=== PATIENT | male | born 1985 | race African-American/Black ===

== ENCOUNTER 2022-09-25 06:07 | Emergency (ER) | payer SELFPAY ==
--- NOTE | ~2022-09-25 | XR_ITS ---
EXAMINATION: XR SHOULDER, LEFT CLINICAL INFORMATION: Shoulder pain COMPARISON: None available. TECHNIQUE: 2 views frontal and scapular Y view FINDINGS: The bones and soft tissues are normal. No fracture. Glenohumeral and acromioclavicular alignment is anatomic with normal joint space. No abnormal soft tissue calcifications. XR/XR shoulder LT min 2V IMPRESSION: No fracture or dislocation.
[2022-09-25 06:19] VITALS: BP 113/86; PULSE 70; RESP 16; TEMP 36.7; O2SAT 98; BMI 33.5
--- NOTE | 2022-09-25 07:42 | ED.EXTPRO ---
HPI - Extremity Problem General Chief complaint: Extremity Injury, Upper Stated complaint: L Shoulder pain/?Dislocated Time Seen by Provider: 09/25/22 07:00 Source: patient and family Mode of arrival: ambulatory Limitations: no limitations History of Present Illness HPI Narrative: Patient is a 37-year-old male presenting to the emergency department with left shoulder pain, questioning dislocation. States that he was lifting a box yesterday, heard a pop, did not have instantaneous pain. States that he developed a gradual worsening of pain throughout the day yesterday. Reports that he felt his shoulder was dislocated so he watched You tube videos and attempted to reduce his shoulder himself. Denies history of prior dislocations. Patient's significant other reports that she heard a ?pop? while patient was attempting to reduce his shoulder himself yesterday. Used ibuprofen with. Denies any falls or other trauma. Denies any numbness or tingling. MD Complaint: extremity pain Onset (ago): hour(s) Pain Consistency: constant Location: left and upper extremity Quality: aching Radiation: none Relieving factors: rest Exacerbating factors: range of motion Associated symptoms: denies other symptoms Context: other (Occurred while lifting a box) Related Data Allergies Allergy/AdvReac Type Severity Reaction Status Date / Time No Known Allergies Allergy Verified 09/25/22 06:27 Review of Systems Review of Systems: As per HPI. Yes all other systems are reviewed and are negative Constitutional: Constitutional: Reports as per HPI [facility] Social History Social History Advance Directives: No Physical Exam Vital Signs: Vital Signs: Last Vital Signs Temp 98.1 F 09/25/22 06:19 Pulse 70 09/25/22 06:19 Resp 16 09/25/22 06:19 BP 113/86 09/25/22 06:19 Pulse Ox 98 09/25/22 06:19 O2 Del Method Room Air 09/25/22 06:19 BMI result Body Mass Index 33.5 Vital signs have been reviewed and appear to be correct. Blood pressure normal. Heart rate normal. Respiratory rate normal. Temperature normal. Oxygen saturation normal. Const: General: cooperative, healthy appearing and no acute distress Orientation/consciousness: oriented to person, oriented to place, oriented to time and patient oriented x3 Limitations: no limitations HEENT: Head: Yes normocephalic and Yes atraumatic Ears: external ears normal General nose exam: Normal external nose present Face and sinus: Yes face symmetric Mouth: oropharynx normal and moist mucous membranes Throat: Yes uvula midline Eyes: Pupils: Equal, round and reactive pupils present Neck: Neck: Yes normal visual inspection and Yes supple Resp: Effort & Inspection: normal respiratory effort and able to speak in complete sentences Auscultation: clear to auscultation bilaterally Cardio: Rate: regular rate Rhythm: regular rhythm Heart sounds: S1 normal heart sound present and S2 normal heart sound present GI: Palpation (GI): Soft to palpation and nontender Auscultation: normoactive bowel sounds : General: Yes no CVA tenderness Back/Spine/Pelvis: Back: no CVA tenderness Skin: General skin exam: elasticity normal and turgor normal Neuro: General: oriented to person, oriented to place, oriented to time, patient oriented x3, moves all extremities, no focal motor deficits, CN's II-XI intact bilaterally and deep tendon reflexes 2+ bilaterally Cranial nerves: Yes Equal, round and reactive pupils present Cognition (Neuro): normal cognition Extrem: General: Yes capillary refill normal, Yes normal exam except as noted, Yes no pedal edema and Yes no calf tenderness Right upper extremity: shoulder/upper arm Details: normal to inspection and abnormal ROM Details: pain with active ROM Details: in ABduction, in flexion and external rotation-, pain with passive ROM Details: with ABduction, with flexion and external rotation- and with range as follows (decreased ROM with forward flexion, abduction, external rotation) and Extremity exam: right hand Details: normal to inspection, normal capillary refill, neuromotor exam normal, neurosensory exam normal and vascular exam Details: radial pulse present Psych: Mental Status: mental status grossly normal Affect: normal affect Thought process: Normal thought process present Medical Decision Making Medical Decision Making MDM Narrative: Patient is a 37-year-old male presenting to the emergency department with left shoulder pain, questioning dislocation. On exam patient is awake, A+Ox3, VS WNL, afebrile, normal neurological exam without focal deficits, decreased ROM and pain with passive ROM to left shoulder, decreased ROM with forward flexion, abduction, and external rotation, neurovascularly intact distal. Given reported symptoms and physical exam findings, initial differential includes impingement syndrome, rotator cuff strain or sprain, possible dislocation reduced by patient. X-ray notable for no fracture/dislocation, normal alignment and joint spaces. My interpretation is in agreement with the radiologist's interpretation. Feel dislocation is less likely, more likely a rotator cuff strain. Advised patient to alternate ibuprofen/tylenol, perform gentle ROM/stretching exercises, and will refer to ortho. Discussed with patient that in the future he should avoid attempting to reduce shoulder himself as he can cause further injury. Advised patient to follow up with PCP as well. Patient and SO verbalized understanding of and agreement with plan. Differential Diagnosis Differential Diagnoses: The differential diagnosis associated with the presentation includes As per MDM. Independent Interpretation I performed an independent interpretation of an: Plain X-Ray Interpretation: No fracture or dislocation of L shoulder Radiology Impression Radiologist Impression: XR/XR shoulder LT min 2V IMPRESSION: No fracture or dislocation. Independent Historian Clinical information obtained from an independent historian. History obtained from or confirmed by: Spouse External Record Review External record reviewed: Inpatient record, Office record and Outpatient record Discharge Plan Discharge Clinical Impression: Rotator cuff injury Qualifiers: Encounter type: initial encounter Laterality: left Qualified Code(s): S46.002A - Unspecified injury of muscle(s) and tendon(s) of the rotator cuff of left shoulder, initial encounter Patient Disposition: Home, Self-Care Instructions: Rotator Cuff Injury (ED), Rotator Cuff Injury Exercises (DC), R.I.C.E. Treatment (ED) Additional Instructions: You have been evaluated in the emergency department today for left shoulder pain. Your evaluation did not find evidence of medical conditions requiring emergent intervention at this time. Please rest, ice your shoulder for 10-15 minutes at a time several times daily, and resume normal activities as tolerated. We recommend you take 600mg ibuprofen every 6 hours or 650mg Tylenol every 6 hours as needed for pain. If Needed you can alternate these medications as they take 1 medication every 3 hours. For instance at noon take ibuprofen, then at 3:00 p.m. take Tylenol, then at 6:00 p.m. take ibuprofen. You are being referred to orthopedics, please follow up with them for further evaluation of your shoulder pain. Please schedule an appointment for follow-up with your primary care provider this week. Return to the emergency department if you experience worsening pain, numbness, tingling, change of color in your arm/hand, or any other concerning symptoms. Referrals: [facility] [place]Provider Group] Stand Alone Forms: Work/School Release
== END 2022-09-25 08:22 | disposition home or self-care (01) ==
PROVIDERS: Emergency Provider Emergency Medicine
DX: S46.002A Unspecified injury of muscle(s) and tendon(s) of the rotator cuff of left shoulder, initial encounter (principal); M25.512 Pain in left shoulder; X50.0XXA Overexertion from strenuous movement or load, initial encounter; Y93.9 Activity, unspecified; Y92.9 Unspecified place or not applicable; Y99.9 Unspecified external cause status
CPT/HCPCS: 73030; 99283; 99284

== ENCOUNTER → 2024-09-30 10:58 | Outpatient (BNVA) | payer OTHER, SELFPAY | PROVIDERS: Visit Provider Physician Assistant Medical | DX: S51.812A Laceration without foreign body of left forearm, initial encounter (principal); W26.9XXA Contact with unspecified sharp object(s), initial encounter; Z53.9 Procedure and treatment not carried out, unspecified reason | CPT/HCPCS: 99202 ==

== ENCOUNTER → 2024-10-06 11:31 | Outpatient (BNVA) | payer OTHER, SELFPAY | PROVIDERS: Visit Provider Physician Assistant Medical | DX: S51.812A Laceration without foreign body of left forearm, initial encounter (principal); W26.9XXA Contact with unspecified sharp object(s), initial encounter; Z91.199 Patient's noncompliance with other medical treatment and regimen due to unspecified reason | CPT/HCPCS: 99213 ==

== ENCOUNTER → 2024-10-14 12:57 | Outpatient (BNVA) | payer OTHER, SELFPAY | PROVIDERS: Visit Provider Physician Assistant Medical | DX: S51.812A Laceration without foreign body of left forearm, initial encounter (principal); W26.9XXA Contact with unspecified sharp object(s), initial encounter; Z23 Encounter for immunization | CPT/HCPCS: 90715; 99213 ==

== ENCOUNTER 2025-01-27 02:52 | Inpatient (IN) | payer MEDICAID, SELFPAY ==
[2025-01-27] VITALS (11 sets, daily range): BP systolic 112–160; BP diastolic 57–81; PULSE 76–102; RESP 16–21; TEMP 36–38.7; O2SAT 94–96; BMI 33.5
--- NOTE | ~2025-01-27 | XR_ITS ---
CLINICAL HISTORY: chest pain, SOB 2 view chest x-ray Comparison: None provided Findings: Normal size heart. Cavitary consolidation in the left mid lung, also seen on the lateral view. No other consolidations. No pleural effusion or pneumothorax. Osseous structures are unremarkable. IMPRESSION: Cavitary consolidation in the left mid lung. Differentials are tuberculosis, pulmonary abscess, fungal infection, necrotizing pneumonia, malignancy, inflammatory/autoimmune process. This document has been electronically signed by: Mookie Snow MD on 01/27/2025 04:19:16
--- NOTE | ~2025-01-27 | CT_ITS ---
EXAMINATION: CT ANGIOGRAM CHEST CLINICAL INFORMATION: Hemoptysis. COMPARISON: None available. TECHNIQUE: Multiple axial images were obtained through the chest after the administration of 75 mL of Omnipaque 350 intravenous contrast. Extensive vascular post-processing including two-dimensional and three-dimensional reformatted images were created and reviewed on an independent workstation. SmartPrep technique. This CT examination was performed using dose optimization techniques as appropriate, variously including the following: *Automated exposure control *Adjustment of mA and/or kV according to patient size (this includes techniques or standardized protocols for targeted exams where dose is matched to indication/reason for exam; i.e. extremities or head) *Use of iterative reconstruction technique DLP: 353 mGy-cm FINDINGS: Main pulmonary artery, main left and right pulmonary artery branches and subsegmental pulmonary artery branches are patent without gross intraluminal filling defects. No aneurysm or dissection, thoracic aorta. Left vertebral artery origin directly from the aortic arch between the left CCA and left subclavian artery. There is a 38 x 33 x 35 mm irregular thick wall cavitary lesion, left upper lung lobe likely anterior segment with associated the peripheral pulmonary groundglass. Multifocal tree-in-bud pattern abnormalities in the right lung. Secretions within the lumen of the small bronchi to the right lower lung lobe. No pleural effusion. No pneumothorax. No hemothorax. No calcified pleural plaques. No gross mediastinal or perihilar lymphadenopathy. No pericardial effusion. Heart is not enlarged. Thyroid gland demonstrates normal morphology without dominant nodules. Gallbladder is contracted. Gynecomastia, bilaterally. Spondylosis C6-7. No acute fracture or listhesis in the thoracic spine. No acute rib fractures. Clavicles and scapula are intact. Sternum is intact. CT/CT angio chest PE protocol IMPRESSION: No acute pulmonary artery emboli. Concerning fungal infection versus mycobacterium with the dominant irregular shaped cavitary lesion, left upper lung lobe lung abscess cannot be excluded. Fleischner guidelines were followed. Electronically signed by: Juan Antonio Ford MD 01/27/2025 07:25 AM EST
--- NOTE | 2025-01-27 03:18 | ECG_ITS ---
Test Reason : cp Blood Pressure : */* mmHG Vent. Rate : 93 BPM Atrial Rate : 93 BPM P-R Int : 170 ms QRS Dur : 80 ms QT Int : 330 ms P-R-T Axes : 65 30 56 degrees QTcB Int : 410 ms Normal sinus rhythm ST elevation, consider early repolarization, pericarditis, or injury Nonspecific ST and T wave abnormality Abnormal ECG No previous ECGs available Referred By: Generic ED Physician Electronically Signed By: DAVID QUEVEDO MD
[2025-01-27 04:39] LABS: Hematocrit 39.0 % (42.0-52.0); Hemoglobin 13.5 g/dl (14.0-18.0); Imm Gran Abs Auto 0.44 X10*3/uL (0.00-0.03); Imm Gran Pct Auto 2.3 % (0.0-0.4); Lymphocytes Absolute Auto 3.0 X10*3/uL (1.2-4.9); Mean Corpuscular HGB Conc 34.6 g/dl (31.0-36.0); Mean Corpuscular Hemoglobin 28.9 pg (27.0-33.0); Mean Corpuscular Volume 83.5 fL (80.0-98.0); NRBC Abs Auto 0.000 X10*3/uL (0.0-0.012); NRBC Pct Auto 0.0 /100WBC (0.0-0.2); Platelet Count 285 X10*3/uL (160-400); Red Blood Count 4.67 X10*6/uL (4.60-5.80); SCAN SMEAR FLAG 1; White Blood Count 18.8 X10*3/uL (4.8-10.8)
[2025-01-27 04:46] LABS: MANUAL DIFF FLAG SCAN
--- NOTE | 2025-01-27 04:50 | ED.CHESTPAIN ---
HPI - Chest Pain General Chief Complaint: Chest Pain Stated Complaint: CP Time Seen by Provider: 01/27/25 04:49 Source: patient and family Mode of arrival: ambulatory Limitations: language barrier History of Present Illness ED Provider: Dr. Minerva Childers HPI narrative: 39-year-old male presents with approximately one week of left-sided chest pain located ?around the heart? that does not radiate. Pain increases with deep inspiration and with coughing. Associated symptoms include shortness of breath, nausea, decreased appetite, subjective fever within the last 24 hours, cough productive of blood-tinged sputum, sinus congestion, and occasional epistaxis when blowing his nose. He reports household members are also ill with upper-respiratory?type symptoms. He took ibuprofen ?days ago? without significant relief. Denies chronic medical problems, daily medications, and medication allergies. He was incarcerated many years ago (not recently), denies homelessness, and last left the country ?a couple years? ago. Related Data Previous Rx's ?Medication ?Instructions ?Recorded doxycycline monohydrate 100 mg 100 mg PO BID 7 days #14 caps 09/30/24 capsule ibuprofen 800 mg tablet 800 mg PO TID PRN pain #30 tabs 09/30/24 Allergies Allergy/AdvReac Type Severity Reaction Status Date / Time No Known Allergies Allergy Verified 01/27/25 03:15 Review of Systems Review of Systems: as per HPI, full review of systems performed and negative but for the above mentioned pertinent positives and negatives. [facility] Social History Social History Alcohol intake: never Advance Directives: No Advance Directives Information Provided: Yes Physical Exam Exam: Exam: GENERAL: Ill-Appearing, appears uncomfortable. SKIN: Normal skin color for ethnicity, warm, dry, no rashes noted. HEENT:? Normocephalic, atraumatic, no stridor, dry mucous membranes, dentition intact, EOMI. NECK: Soft, supple, full ROM, midline structures nontender, no step-offs, no deformities, no lymphadenopathy. CHEST: Heart regular tachycardia, no murmurs, symmetric chest rise and fall. PULMONARY: Clear to auscultation bilaterally, diminished at the bases, slight tachypnea, no wheezes/rhales/rhonchi. ABDOMINAL: Soft, nondistended, nontender, positive bowel sounds in all quadrants. : Deferred. MUSCULOSKELETAL: Normal tone, full range of motion, no deformities, no peripheral edema. NEURO: Alert and oriented x3, CN II through XII intact, equal strength and sensation bilateral upper and lower extremities, no focal neurologic deficits.? PSYCHIATRIC: Flat affect, fluid speech, good eye contact and appropriate demeanor. Vital Signs: Vital Signs: Last Vital Signs Temp 101.6 F H 01/27/25 05:44 Pulse 102 H 01/27/25 03:14 Resp 16 01/27/25 03:14 BP 121/68 01/27/25 03:14 Pulse Ox 96 01/27/25 03:14 O2 Del Method Room Air 01/27/25 03:14 BMI result Body Mass Index 33.5 Medications Administered Discontinued Medications Generic Name Dose Route Start Last Admin Trade Name Freq PRN Reason Stop Dose Admin Lactated Ringer's 1,000 mls @ 999 mls/hr 01/27/25 05:15 01/27/25 05:48 Lr IV 01/27/25 06:15 999 mls/hr .Q1H1M ONE Administration Acetaminophen 1,000 mg in 100 mls @ 400 mls/hr 01/27/25 05:15 01/27/25 07:20 Ofirmev IV 01/27/25 05:29 Infused ONCE ONE Infusion Doxycycline Hyclate 100 mg/ 250 mls @ 166.67 mls/hr 01/27/25 05:15 01/27/25 05:47 Sodium Chloride IV 01/27/25 06:44 166.67 mls/hr ONCE ONE Administration Cefepime HCl 2 gm in 50 mls @ 100 mls/hr 01/27/25 05:15 01/27/25 05:47 Maxipime IV 01/27/25 05:44 100 mls/hr ONCE ONE Administration Iohexol 75 ml 01/27/25 07:03 01/27/25 07:04 Iohexol 350 Mg/Ml 100 Ml Infus..Btl IV 01/27/25 07:04 75 ml ONCE ONE Administration Ondansetron HCl 4 mg 01/27/25 05:15 01/27/25 05:47 Ondansetron Hcl 4 Mg/2 Ml Vial IVPUSH 01/27/25 05:16 4 mg ONCE ONE Administration Medical Decision Making Medical Decision Making MDM Narrative: 39-year-old male with left-sided pleuritic chest pain, cough with hemoptysis, subjective fever, and imaging showing left mid-lung pneumonia with morphology concerning for tuberculosis. Differential diagnosis includes, but is not limited to, upper respiratory infection, pneumonia, COPD exacerbation, asthma exacerbation, CHF, pneumothorax, pleural effusion, pulmonary embolism, ACS. Broad-based work-up will be initiated to evaluate for etiology of patient's symptoms. Problem #1: Left-sided pneumonia Assessment: Imaging confirms pneumonia correlating with pain location; patient febrile and tachycardic. Plan: Begin empiric intravenous antibiotics. Monitor vital signs and oxygen saturation; supplemental O2 as needed (15 L while on monitor). Antipyretics for fever and analgesia after core temperature obtained. Follow-up: Reassess after CT results; update management accordingly. Problem #2: Possible pulmonary tuberculosis Assessment: CXR lesion morphology concerning; patient risk factors include prior incarceration, no recent travel outside of the country. Patient is from [facility] originally. States he has not been there since 2022. Everyone in his home is also sick with cough and fever. No recent weight loss. Plan: CT chest ordered for further evaluation. Obtain QuantiFERON-TB Gold test. Place patient on airborne precautions (N95/mask for patient during transport) to prevent spread. Problem #3: Hemoptysis Assessment: Cough productive of blood-tinged sputum, likely secondary to pneumonia vs TB. Plan: Address underlying infection (see above). Admit to hospitalist for further care and evaluation of cavitary lesion in the left lung, fever and hemoptysis. Differential Diagnosis Differential Diagnoses: The differential diagnosis associated with the presentation includes (as above) Admission/Observation Consideration of admission/observation: Escalation of care including admission/observation considered Consult Healthcare Provider Management of the patient was discussed with: Hospitalist Lab Data [facility] Lab Attestation statement: I reviewed the patient's lab results. 01/27/25 04:32 01/27/25 04:32 Labs: Lab Results 01/27/25 01/27/25 Range/Units 04:32 05:28 WBC 18.8 H (4.8-10.8) X10*3/uL RBC 4.67 (4.60-5.80) X10*6/uL Hgb 13.5 L (14.0-18.0) g/dl Hct 39.0 L (42.0-52.0) % MCV 83.5 (80.0-98.0) fL MCH 28.9 (27.0-33.0) pg MCHC 34.6 (31.0-36.0) g/dl RDW 13.2 (11.0-16.0) % Plt Count 285 (160-400) X10*3/uL MPV 10.7 (9.4-12.4) fL Immature Gran % (Auto) 2.3 H (0.0-0.4) % Neut % (Auto) 67.3 (45-73) % Lymph % (Auto) 16.2 L (20-40) % [place] % (Auto) 13.7 H (2-11) % Eos % (Auto) 0.2 (0-4) % Baso % (Auto) 0.3 (0-2) % Lymph # (Auto) 3.0 (1.2-4.9) X10*3/uL [place] # (Auto) 2.6 H (0.1-1.2) X10*3/uL Eos # (Auto) 0.0 (0.0-0.4) X10*3/uL Baso # (Auto) 0.1 (0.0-0.2) X10*3/uL Abs Immat Gran (auto) 0.44 H (0.00-0.03) X10*3/uL Absolute Neuts (auto) 12.6 H (2.0-8.3) x10*3/uL Absolute Nucleated RBC 0.000 (0.0-0.012) X10*3/uL Nucleated RBC % (auto) 0.0 (0.0-0.2) /100WBC Smear Tech's Comments VERIFIED Sodium 134 L (135-145) mmol/L Potassium 3.7 (3.3-5.1) mmol/L Chloride 97 (96-108) mmol/L Carbon Dioxide 25 (22-29) mmol/L Anion Gap 16 (12-20) BUN 12 (9-16) mg/dL Creatinine 1.30 (0.5-1.4) mg/dL Estim Creat Clear Calc 96.7 Estimated GFR > 60 Random Glucose 111 (60-115) mg/dL Lactic Acid 1.0 (0.5-2.0) mmol/L Calcium 9.2 (8.4-10.2) mg/dL Total Bilirubin 0.8 (0.0-1.0) mg/dL Direct Bilirubin 0.3 (0.0-0.5) mg/dL AST 45 H (5-37) U/L ALT 41 H (0-40) U/L Alkaline Phosphatase 62 (39-117) U/L Troponin I High Sens < 2.7 (<3.5-35.0) ng/L Total Protein 8.3 H (6.5-8.0) g/dL Albumin 4.2 (3.5-5.0) g/dL Influenza Type A (PCR) NEGATIVE (Negative) Influenza Type B (PCR) NEGATIVE (Negative) RSV RNA Qual (PCR) NEGATIVE (Negative) SARS-CoV-2 RNA (RT-PCR) NEGATIVE (Negative) Independent Interpretation I performed an independent interpretation of an: EKG and Plain X-Ray Interpretation: Left middle lobe cavitary lesion concerning for potential tuberculosis versus abscess versus other cavitary lesion. We will obtain CT. Radiology Impression Discussion of test interpretation with radiology: I have reviewed the radiologist's reading. Radiologist Impression: FINDINGS: Main pulmonary artery, main left and right pulmonary artery branches and subsegmental pulmonary artery branches are patent without gross intraluminal filling defects. No aneurysm or dissection, thoracic aorta. Left vertebral artery origin directly from the aortic arch between the left CCA and left subclavian artery. There is a 38 x 33 x 35 mm irregular thick wall cavitary lesion, left upper lung lobe likely anterior segment with associated the peripheral pulmonary groundglass. Multifocal tree-in-bud pattern abnormalities in the right lung. Secretions within the lumen of the small bronchi to the right lower lung lobe. No pleural effusion. No pneumothorax. No hemothorax. No calcified pleural plaques. No gross mediastinal or perihilar lymphadenopathy. No pericardial effusion. Heart is not enlarged. Thyroid gland demonstrates normal morphology without dominant nodules. Gallbladder is contracted. Gynecomastia, bilaterally. Spondylosis C6-7. No acute fracture or listhesis in the thoracic spine. No acute rib fractures. Clavicles and scapula are intact. Sternum is intact. IMPRESSION: No acute pulmonary artery emboli. Concerning fungal infection versus mycobacterium with the dominant irregular shaped cavitary lesion, left upper lung lobe lung abscess cannot be excluded. Independent Historian Clinical information obtained from an independent historian. History obtained from or confirmed by: Spouse Prescription Management I considered prescription management with: Antibiotic Social Determinants Patient?s care significantly limited by Social Determinants of Health including: Other Social Determinant of Health Discharge Plan Discharge Clinical Impression: Pulmonary cavitary lesion, Cough with hemoptysis Patient Disposition: Admitted As Inpatient Print Language: Amharic
[2025-01-27 04:59] LABS: Anion Gap 16 (12-20); Blood Urea Nitrogen 12 mg/dL (9-16); Calcium 9.2 mg/dL (8.4-10.2); Carbon Dioxide 25 mmol/L (22-29); Chloride 97 mmol/L (96-108); Creatinine Clr Calc Pharmacy 96.7; Estimated Glomerular Filt Rate > 60; Potassium 3.7 mmol/L (3.3-5.1); Sodium 134 mmol/L (135-145)
[2025-01-27 05:07] LABS: Troponin-I High Sensitivity < 2.7 ng/L (<3.5-35.0)
[2025-01-27 05:18] LABS: Resp Syncy Virus RNA Qual PCR NEGATIVE (Negative); SARS COV2 PCR INHOUSE NEGATIVE (Negative)
[2025-01-27] MEDS: cefEPime HCl/D5W 2 GM/50 ML PIGGYBACK IV ×3 (05:47→21:58)
[2025-01-27] MEDS: Lactated Ringers 1,000 ML 999 ML IV (05:48)
[2025-01-27 06:12] LABS: Alanine Aminotransferase 41 U/L (0-40); Albumin Level 4.2 g/dL (3.5-5.0); Alkaline Phosphatase 62 U/L (39-117); Aspartate Amino Transferase 45 U/L (5-37); Total Protein 8.3 g/dL (6.5-8.0)
[2025-01-27] MEDS: iohexoL 350 MG/ML 100 ML INFUS..BTL 75 ML IV (07:04)
--- NOTE | 2025-01-27 08:51 | PHA.MEDREC ---
Pharmacy Consult ? Medication Reconciliation Pharmacy has completed the medication reconciliation. Spoke with pt to confirm he is not on any daily medications.
[2025-01-27] MEDS: Lactated Ringers 1,000 ML 100 ML IVCONT (10:35)
--- NOTE | 2025-01-27 11:04 | HO.NURTONUR ---
Pt is a 39yo with no significant medical hx c/o chest pain worse with exertion that started 2-3wks ago. Today pt reports coughing up bloody sputum. CXR shows cavitary consolidation. Concern for TB or fungal infection. Bld cxs drawn. Doxycycline and cefepime given. Febrile on arrival, was treated with IV tylenol. NSR on the monitor. BP stable. 20gLFA and 20gRAC. LR@100ml/hr.
--- NOTE | 2025-01-27 11:42 | PM.IMHP ---
History of Present Illness Date of Service: 01/27/25 Chief Complaint: Left-sided chest pain/hemoptysis 39-year-old gentleman with no significant past medical history presented to [place] due to symptoms of left sided chest pain of 1 week duration. Pain is localized with no radiation get worse with coughing and deep breathing associated with shortness of breath, cough productive of blood tinged sputum, night sweats, occasional epistaxis, decreased appetite, subjective fevers and 5 lb weight loss in 1 week. Patient denies similar symptoms in the past, denied recent travels, no household members with similar symptoms. Took ibuprofen and Tylenol with no relief in symptoms. He was incarcerated many years ago, last left country couple years ago. Patient denies history of smoking, no illicit drug use, no alcohol use, no nausea no vomiting or aspiration. In ED patient noted to have temp of 101.6 degrees, WBC 18.8, pulse 102, respiratory rate 21, O2 sat 96% on room air. CTA chest showed no acute PE, concerning fungal infection versus mild go bacteria with a dominant irregular shape cavitary lesion left upper lung lobe, lung abscess can not be excluded. Patient treated in the emergency room with IV doxycycline, IV cefepime, IV fluid, QuantiFERON TB gold test sent patient is now being admitted to [facility] for sepsis due to left lung cavitary lesion. Review of Systems Review of Systems: General no headache no dizziness , positive fever, night sweats CVS no palpitation. Respiratory as per HPI. Gastrointestinal no nausea no vomiting, no abdominal pain, no urgency, no frequency All other system reviewed and are negative PMFSH Social History Alcohol intake: never Advance Directives: No Advance Directives Information Provided: Yes Meds Allergies Allergy/AdvReac Type Severity Reaction Status Date / Time No Known Allergies Allergy Verified 01/27/25 03:15 Active Medications: Current Medications Acetaminophen (Acetaminophen 325 Mg Tablet) 650 mg PO Q6H PRN PRN Reason: Pain, Mild 1-3,fever,headache Al Hydroxide/Mg Hydroxide (Magnesium Hydrox/Alum Hydrox 30 Ml Oral.Susp) 30 ml PO Q4H PRN PRN Reason: Heartburn Calcium Carbonate (Calcium Carbonate 750 Mg Tab.Chew) 750 mg PO Q4H PRN PRN Reason: Heartburn Guaifenesin/Dextromethorphan (Guaifenesin Dm 100/10/5 Ml 5 Ml Syrup) 10 ml PO Q6H [facility] Last Admin: 01/27/25 11:20 Dose: Not Given Lactated Ringer's (Lr) 1,000 mls @ 100 mls/hr IVCONT .Q10H [facility] Stop: 01/27/25 19:44 Last Admin: 01/27/25 10:35 Dose: 100 mls/hr Doxycycline Hyclate 100 mg/ (Sodium Chloride) 250 mls @ 166.67 mls/hr IV Q12H [facility] Cefepime HCl (Maxipime) 2 gm in 50 mls @ 100 mls/hr IV Q8H [facility] Magnesium Hydroxide (Milk Of Magnesia 30 Ml Oral.Susp) 30 ml PO DAILY PRN PRN Reason: Constipation Melatonin (Melatonin 3 Mg Tablet) 6 mg PO BEDTIME PRN PRN Reason: Insomnia Ondansetron HCl (Ondansetron Hcl 4 Mg/2 Ml Vial) 4 mg IVPUSH Q8H PRN PRN Reason: Nausea and Vomiting Oxycodone HCl (Oxycodone Hcl Immed Release 5 Mg Tablet) 5 mg PO Q6H PRN PRN Reason: Pain, Severe (Pain Scale 7-10) Polyethylene Glycol (Polyethylene Glycol 3350 17 Gm Powd.Pack) 17 gm PO DAILY PRN PRN Reason: Constipation Sodium Chloride (0.9 % Sodium Chloride Flush 3 Ml Syringe) 3 ml IVFLUSH QSHIFT [facility] Home Medications ?Medication ?Instructions ?Recorded ?Confirmed ?Last Taken ?Type acetaminophen 325 mg tablet 650 mg PO Q4H PRN Pain 01/27/25 01/27/25 Unknown History (Tylenol) ibuprofen 200 mg tablet 400 mg PO Q6H PRN Pain 01/27/25 01/27/25 Unknown History Physical Exam Vital Signs and Narrative: Vital Signs: Last Vital Signs Temp 98.3 F 01/27/25 08:50 Pulse 76 01/27/25 10:38 Resp 21 H 01/27/25 10:38 BP 113/72 01/27/25 10:38 Pulse Ox 96 01/27/25 10:38 O2 Del Method Room Air 01/27/25 10:38 BMI result Body Mass Index 33.5 Const: Other: General sick appearing, dry mucous membranes. Neck no JVD. CVS regular rate rhythm, Respiratory lungs clear to auscultation, diminished, tachypneic, no wheeze, no rhonchi. Gastrointestinal abdomen soft, non tender, bowel sounds audible, no guarding , no rigidity. Extremities no edema. Neuro non focal Skin no rash Appropriate affect Results Labs 01/27/25 04:32 01/27/25 04:32 Labs: Laboratory Results - last 24 hr 01/27/25 01/27/25 04:32 05:28 MCV 83.5 MCH 28.9 MCHC 34.6 RDW 13.2 Plt Count 285 MPV 10.7 Immature Gran % (Auto) 2.3 H Neut % (Auto) 67.3 Lymph % (Auto) 16.2 L [place] % (Auto) 13.7 H Eos % (Auto) 0.2 Baso % (Auto) 0.3 Lymph # (Auto) 3.0 [place] # (Auto) 2.6 H Eos # (Auto) 0.0 Baso # (Auto) 0.1 Abs Immat Gran (auto) 0.44 H Absolute Neuts (auto) 12.6 H Absolute Nucleated RBC 0.000 Nucleated RBC % (auto) 0.0 Smear Tech's Comments VERIFIED Anion Gap 16 Estim Creat Clear Calc 96.7 Estimated GFR > 60 Random Glucose 111 Lactic Acid 1.0 Calcium 9.2 Total Bilirubin 0.8 Direct Bilirubin 0.3 AST 45 H ALT 41 H Alkaline Phosphatase 62 Troponin I High Sens < 2.7 Total Protein 8.3 H Albumin 4.2 Influenza Type A (PCR) NEGATIVE Influenza Type B (PCR) NEGATIVE RSV RNA Qual (PCR) NEGATIVE SARS-CoV-2 RNA (RT-PCR) NEGATIVE Imaging Radiologist's Impressions: Impressions Chest CTA 01/27/25 06:40 IMPRESSION: No acute pulmonary artery emboli. Concerning fungal infection versus mycobacterium with the dominant irregular shaped cavitary lesion, left upper lung lobe lung abscess cannot be excluded. Fleischner guidelines were followed. Electronically signed by: Juan Antonio Ford MD 01/27/2025 07:25 AM EST Assessment and Plan (1) Pulmonary cavitary lesion: Status: Acute (2) Cough with hemoptysis: Status: Acute Plan 39-year-old gentleman with no known medical history presented with 7 days of left anterior chest wall pain with no radiation associated with hemoptysis, night sweats weight loss, workup showed left lung cavitary lesion patient will be admitted for diagnosis of sepsis due to pneumonia. Sepsis due to cavitary lesion left lung , cough with hemoptysis. meets sepsis criteria due to fever, tachycardia, leukocytosis due to left middle lobe cavitary lesion concerning for potential tuberculosis versus abscess versus other cavitary lesion IV cefepime and IV doxycycline Airborne precaution, follow QuantiFERON-TB Gold test. Sputum cultures/blood cultures Obtain ID and Pulmonary consultation Cough medication, and analgesics Monitor CBC and electrolytes. DVT prophylaxis with compression boots avoid anticoagulation due to hemoptysis Full code Patient requires 2 midnight admission due to sepsis requiring IV antibiotics and further workup for cavitary lesion, care can not be provided in less acute setting. Quality Stroke Does the patient have a stroke diagnosis?: No VTE Prior VTE?: No VTE Risk Level:: Medical - moderate - high VTE Device Contraindication: N/A - Device Ordered VTE Drug Contraindication: Treatment Not Indicated
--- NOTE | 2025-01-27 13:30 | PM.CNPUL ---
History of Present Illness History of Present Illness Consult date: 01/27/25 Chief complaint: Left upper lobe cavitary lesion Narrative: 39-year-old gentleman, [place] of [facility], with no significant past medical history admitted on 01/27/2025 with left-sided chest pain, cough productive of blood-tinged sputum, intermittent night sweats, and unintentional weight loss of approximately 5-10 lb. Patient was started on empiric antibiotics and CT chest imaging was obtained that showed a left upper lobe cavitary lesion. Patient placed on empiric antibiotics and admitted for further workup and management. Review of Systems Constitutional: Constitutional: Denies daytime sleepiness, Denies excessive sweating, Denies fatigue, Reports fever(s), Denies lethargy, Denies malaise, Reports night sweats, Denies snoring and Reports weight loss Eyes: Eyes: Denies blurry vision and Denies itchy eyes ENT: Denies nasal congestion, Denies post nasal drip, Denies sinus pain, Denies sinus pressure and Denies other ( Thrush) Cardiovascular: Cardiovascular: Denies chest pain, Denies pedal edema, Denies dyspnea, Denies orthopnea and Denies paroxysmal nocturnal dyspnea Respiratory: Respiratory: Reports cough, Reports hemoptysis (Blood-tinged), Denies excessive phlegm production, Denies dyspnea, Denies snoring and Denies wheezing Gastrointestinal: Gastrointestinal: Denies abdominal pain and Denies heartburn Musculoskeletal: Musculoskeletal: Denies myalgias, Denies arthralgias and Denies joint swelling Integumentary/Breasts: Skin/Breast: Denies rash Neurologic: Denies memory loss and Denies seizure-like activity Psychiatric: Psychiatric: Denies abnormal sleep pattern, Denies anxiety and Denies memory loss Endocrine: Endocrine: Denies excessive sweating, Denies fatigue and Denies heat intolerance Hematologic/Lymphatic: Hematologic/Lymphatic: Denies easy bruising Allergic/Immunologic: Allergic/Immunologic: Denies itchy eyes, Denies seasonal rhinorrhea and Denies wheezing PMFSH Social History Social History Household Members: Family Housing: House Do you presently have visiting nurse or other home services: No Alcohol intake: never Patient Tobacco Use Status: Never used Tobacco Meds Allergies Allergy/AdvReac Type Severity Reaction Status Date / Time No Known Allergies Allergy Verified 01/27/25 03:15 Active Medications: Current Medications Acetaminophen (Acetaminophen 325 Mg Tablet) 650 mg PO Q6H PRN PRN Reason: Pain, Mild 1-3,fever,headache Al Hydroxide/Mg Hydroxide (Magnesium Hydrox/Alum Hydrox 30 Ml Oral.Susp) 30 ml PO Q4H PRN PRN Reason: Heartburn Calcium Carbonate (Calcium Carbonate 750 Mg Tab.Chew) 750 mg PO Q4H PRN PRN Reason: Heartburn Guaifenesin/Dextromethorphan (Guaifenesin Dm 100/10/5 Ml 5 Ml Syrup) [address] [facility] Last Admin: 01/27/25 11:20 Dose: Not Given Lactated Ringer's (Lr) 1,000 mls @ 100 mls/hr IVCONT .Q10H [facility] Stop: 01/27/25 19:44 Last Admin: 01/27/25 10:35 Dose: 100 mls/hr Doxycycline Hyclate 100 mg/ (Sodium Chloride) 250 mls @ 166.67 mls/hr IV Q12H [facility] Cefepime HCl (Maxipime) 2 gm in 50 mls @ 100 mls/hr IV Q8H [facility] Magnesium Hydroxide (Milk Of Magnesia 30 Ml Oral.Susp) 30 ml PO DAILY PRN PRN Reason: Constipation Melatonin (Melatonin 3 Mg Tablet) 6 mg PO BEDTIME PRN PRN Reason: Insomnia Ondansetron HCl (Ondansetron Hcl 4 Mg/2 Ml Vial) 4 mg IVPUSH Q8H PRN PRN Reason: Nausea and Vomiting Oxycodone HCl (Oxycodone Hcl Immed Release 5 Mg Tablet) 5 mg PO Q6H PRN PRN Reason: Pain, Severe (Pain Scale 7-10) Polyethylene Glycol (Polyethylene Glycol 3350 17 Gm Powd.Pack) 17 gm PO DAILY PRN PRN Reason: Constipation Sodium Chloride (0.9 % Sodium Chloride Flush 3 Ml Syringe) [address] [facility] Home Medications ?Medication ?Instructions ?Recorded ?Confirmed ?Last Taken ?Type acetaminophen 325 mg tablet 650 mg PO Q4H PRN Pain 01/27/25 01/27/25 Unknown History (Tylenol) ibuprofen 200 mg tablet 400 mg PO Q6H PRN Pain 01/27/25 01/27/25 Unknown History Physical Exam Vital Signs: Vital Signs: Last Vital Signs Temp 96.8 F 01/27/25 13:03 Pulse 85 01/27/25 13:03 Resp 18 01/27/25 13:03 BP 135/81 01/27/25 13:03 Pulse Ox 96 01/27/25 13:03 O2 Del Method Room Air 01/27/25 13:03 BMI result Body Mass Index 33.5 Const: General: no acute distress, alert and awake Eyes: Sclerae: sclerae normal EOM: EOMs intact bilaterally Neck: Neck: Yes no lymphadenopathy, Yes trachea midline and Yes supple Resp: Effort & Inspection: normal respiratory effort and no respiratory distress Auscultation: clear to auscultation bilaterally Cardio: Rate: regular rate Rhythm: regular rhythm Heart sounds: no gallops, no murmurs and no rubs GI: Palpation (GI): Soft to palpation and Other GI palpation findings present ( Nontender) Auscultation: normal bowel sounds Extrem: General: Yes no pedal edema, No clubbing and No cyanosis Results Laboratory Findings 01/27/25 04:32 01/27/25 04:32 Abnormal lab findings: Abnormal Labs 01/27/25 04:32 WBC 18.8 H Hgb 13.5 L Hct 39.0 L Immature Gran % (Auto) 2.3 H Lymph % (Auto) 16.2 L [place] % (Auto) 13.7 H [place] # (Auto) 2.6 H Abs Immat Gran (auto) 0.44 H Absolute Neuts (auto) 12.6 H Sodium 134 L AST 45 H ALT 41 H Total Protein 8.3 H Assessment and Plan (1) Pulmonary cavitary lesion: Status: Acute (2) Cough with hemoptysis: Status: Acute Plan Impression: 39-year-old gentleman admitted with dyspnea, cough productive of blood-tinged sputum, night fevers and unintended weight loss. CT chest with left upper lobe cavitary lesion. Concern for possible TB versus non mycobacterial abscess. Recommendation: Agree with empiric broad-spectrum antibiotic coverage. Agree with ruling out active TB with 3 subsequent AFB smears. Procedures Date of Service Date of Service: 01/27/25
[2025-01-27] MEDS: guaiFENesin DM 100/10/5 ML 5 ML SYRUP 10 ML PO (17:08)
--- NOTE | 2025-01-27 22:51 | P.CNID_ITS ---
History of Present Illness Data of Consult Service Date: 01/27/25 Requesting physician: Vivian Huang Primary Care Provider: Unknown Physician HPI Reason for consult: left upper lung cavity He presents with two weeks worsening small volume hemoptysis as well as nasal bleeding. He has family members ill with URI as well. He comes from [facility] and was last there in 2022. He denies family h/o lung disease and doesnt know what tuberculosis is . 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 He denies drug use. Review of Systems 2 Review of Systems: Yes all other systems are reviewed and are negative Constitutional: Constitutional: Reports lethargy Comments: 5-10 pound weight loss PMFSH Family History Family history: reviewed and not pertinent Social History Social History Household Members: Family Housing: House Do you presently have visiting nurse or other home services: No Alcohol intake: never Patient Tobacco Use Status: Never used Tobacco Meds Allergies Allergy/AdvReac Type Severity Reaction Status Date / Time No Known Allergies Allergy Verified 01/27/25 03:15 Active Medications: Current Medications Acetaminophen (Acetaminophen 325 Mg Tablet) 650 mg PO Q6H PRN PRN Reason: Pain, Mild 1-3,fever,headache Last Admin: 01/27/25 21:49 Dose: 650 mg Al Hydroxide/Mg Hydroxide (Magnesium Hydrox/Alum Hydrox 30 Ml Oral.Susp) 30 ml PO Q4H PRN PRN Reason: Heartburn Calcium Carbonate (Calcium Carbonate 750 Mg Tab.Chew) 750 mg PO Q4H PRN PRN Reason: Heartburn Guaifenesin/Dextromethorphan (Guaifenesin Dm 100/10/5 Ml 5 Ml Syrup) 10 ml PO Q6H [facility] Last Admin: 01/27/25 21:58 Dose: Not Given Doxycycline Hyclate 100 mg/ (Sodium Chloride) 250 mls @ 166.67 mls/hr IV Q12H [facility] Last Infusion: 01/27/25 18:42 Dose: Infused Cefepime HCl (Maxipime) 2 gm in 50 mls @ 100 mls/hr IV Q8H [facility] Last Infusion: 01/27/25 22:37 Dose: Infused Magnesium Hydroxide (Milk Of Magnesia 30 Ml Oral.Susp) 30 ml PO DAILY PRN PRN Reason: Constipation Melatonin (Melatonin 3 Mg Tablet) 6 mg PO BEDTIME PRN PRN Reason: Insomnia Ondansetron HCl (Ondansetron Hcl 4 Mg/2 Ml Vial) 4 mg IVPUSH Q8H PRN PRN Reason: Nausea and Vomiting Oxycodone HCl (Oxycodone Hcl Immed Release 5 Mg Tablet) 5 mg PO Q6H PRN PRN Reason: Pain, Severe (Pain Scale 7-10) Polyethylene Glycol (Polyethylene Glycol 3350 17 Gm Powd.Pack) 17 gm PO DAILY PRN PRN Reason: Constipation Sodium Chloride (0.9 % Sodium Chloride Flush 3 Ml Syringe) 3 ml IVFLUSH QSHIFT [facility] Last Admin: 01/27/25 14:04 Dose: Not Given Home Medications ?Medication ?Instructions ?Recorded ?Confirmed ?Last Taken ?Type acetaminophen 325 mg tablet 650 mg PO Q4H PRN Pain 12/1201/27/25 Unknown History (Tylenol) ibuprofen 200 mg tablet 400 mg PO Q6H PRN Pain 01/2701/27/25 Unknown History Physical Exam 2 Vital Signs: Vital Signs: Last Vital Signs Temp 100.1 F 01/27/25 22:35 Pulse 102 H 01/27/25 19:52 Resp 18 01/27/25 19:52 BP 115/79 01/27/25 19:52 Pulse Ox 95 01/27/25 19:52 O2 Del Method Room Air 01/27/25 19:52 BMI result Body Mass Index 33.5 Const: General: cooperative HEENT: Head: Yes normal to inspection Face and sinus: Yes normal facial exam Mouth: Normal oral and palatal mucosa present Teeth and gingiva: d entition normal Eyes: General: appearance normal, both eyes and all related structures P upils: Equal, round and reactive pupils present Resp: Effort & Inspection: normal respiratory effort Cardio: Rate: regular rate Rhythm: regular rhythm GI: Palpation (GI): Soft to palpation and nontender : General: Yes no CVA tenderness Back/Spine/Pelvis: Back: no CVA tenderness Skin: General skin exam: no rashes or lesions noted Neuro: General: moves all extremities Cranial nerves: Yes Equal, round and reactive pupils present Extrem: General: Yes normal to inspection Psych: Appearance: grossly normal Results Labs 01/27/25 04:32 01/27/25 04:32 Labs: Short CBC 01/27/25 Range/Units 04:32 WBC 18.8 H (4.8-10.8) X10*3/uL Hgb 13.5 L (14.0-18.0) g/dl Hct 39.0 L (42.0-52.0) % Plt Count 285 (160-400) X10*3/uL BMP 01/27/25 04:32 Sodium 134 L Potassium 3.7 Chloride 97 Carbon Dioxide 25 BUN 12 Creatinine 1.30 Calcium 9.2 Liver Function 01/27/25 Range/Units 04:32 Total Bilirubin 0.8 (0.0-1.0) mg/dL Direct Bilirubin 0.3 (0.0-0.5) mg/dL AST 45 H (5-37) U/L ALT 41 H (0-40) U/L Alkaline Phosphatase 62 (39-117) U/L Albumin 4.2 (3.5-5.0) g/dL Microbiology Microbiology Results: Microbiology 01/27/25 14:00 Sputum - Expectorated Gram Stain - Final Assessment and Plan (1) Pulmonary cavitary lesion: Status: Acute (2) Cough with hemoptysis: Status: Acute Plan He has moderate likelihood of tuberculosis with hemoptysis and cavitary lesion. 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 Strict respiratory isolation AM sputum for AFB x 3. Duration of antibiotics depends of results of testing.
[2025-01-28 00:02] VITALS: TEMP 36.8
[2025-01-28 04:00] VITALS: BP 126/71; PULSE 95; RESP 18; TEMP 37.1; O2SAT 97
[2025-01-28] MEDS: cefEPime HCl/D5W 2 GM/50 ML PIGGYBACK IV ×3 (05:54→21:38)
[2025-01-28 07:15] LABS: HIV Num 1 0.05 S/CO (0.00-0.99)
[2025-01-28 09:04] VITALS: BP 118/64; PULSE 97; RESP 18; TEMP 37.5; O2SAT 95
--- NOTE | 2025-01-28 12:42 | P.PNIM_ITS ---
Subjective Subjective Date of Service: 01/28/25 Interval History: coughing up bloody sputum ongoing x2wk febrile to 101.2 overnight and c/o night sweats last was in [place] 2yr ago Review of Systems Review of Systems: Yes all other systems are reviewed and are negative Physical Exam 2 Vital Signs: Vital Signs: Last Vital Signs Temp 99.5 F 01/28/25 09:04 Pulse 97 01/28/25 09:04 Resp 18 01/28/25 09:04 BP 118/64 01/28/25 09:04 Pulse Ox 95 01/28/25 09:04 O2 Del Method Room Air 01/28/25 09:04 BMI result Body Mass Index 33.5 Gen: in no acute distress HEENT: sclera anicteric, moist mucus membranes Neck: supple Lungs: clear to auscultation bilaterally Heart: regular rate and rhythm, no murmurs Abd: soft, non-tender, non-distended Ext: no edema Skin: warm/well-perfused Neuro: alert and oriented x3, no focal findings Psych: appropriate affect Objective Data Active Medications Acetaminophen (Acetaminophen 325 Mg Tablet) 650 mg PO Q6H PRN PRN Reason: Pain, Mild 1-3,fever,headache Last Admin: 01/28/25 09:27 Dose: 650 mg Documented By: MELISSA Al Hydroxide/Mg Hydroxide (Magnesium Hydrox/Alum Hydrox 30 Ml Oral.Susp) 30 ml PO Q4H PRN PRN Reason: Heartburn Calcium Carbonate (Calcium Carbonate 750 Mg Tab.Chew) 750 mg PO Q4H PRN PRN Reason: Heartburn Guaifenesin/Dextromethorphan (Guaifenesin Dm 100/10/5 Ml 5 Ml Syrup) 10 ml PO Q6H [facility] Last Admin: 01/28/25 08:16 Dose: Not Given Documented By: MELISSA Non-Admin Reason: Patient Refused Doxycycline Hyclate 100 mg/ (Sodium Chloride) 250 mls @ 166.67 mls/hr IV Q12H [facility] Last Infusion: 01/28/25 08:14 Dose: Infused Documented By: MELISSA Cefepime HCl (Maxipime) 2 gm in 50 mls @ 100 mls/hr IV Q8H [facility] Last Infusion: 01/28/25 06:25 Dose: Infused Documented By: TULIO Sodium Chloride (Ns) 1,000 mls @ 100 mls/hr IVCONT .Q10H [facility] Last Admin: 01/28/25 09:28 Dose: 100 mls/hr Documented By: MELISSA Magnesium Hydroxide (Milk Of Magnesia 30 Ml Oral.Susp) 30 ml PO DAILY PRN PRN Reason: Constipation Melatonin (Melatonin 3 Mg Tablet) 6 mg PO BEDTIME PRN PRN Reason: Insomnia Ondansetron HCl (Ondansetron Hcl 4 Mg/2 Ml Vial) 4 mg IVPUSH Q8H PRN PRN Reason: Nausea and Vomiting Oxycodone HCl (Oxycodone Hcl Immed Release 5 Mg Tablet) 5 mg PO Q6H PRN PRN Reason: Pain, Severe (Pain Scale 7-10) Polyethylene Glycol (Polyethylene Glycol 3350 17 Gm Powd.Pack) 17 gm PO DAILY PRN PRN Reason: Constipation Sodium Chloride (0.9 % Sodium Chloride Flush 3 Ml Syringe) 3 ml IVFLUSH QSHIFT [facility] Last Admin: 01/28/25 07:01 Dose: Not Given Documented By: MELISSA Non-Admin Reason: IV Running Labs 01/27/25 04:32 01/27/25 04:32 Labs: Laboratory Results - last 24 hr 01/28/25 05:41 ESR 74 H Hold Purple Top SEE NOTE Rheumatoid Factor < 13.0 HIV 1&2 Ab/P24 Ag 4thGn Nonreactive Microbiology Microbiology Results: Microbiology 01/27/25 14:00 Gram Stain - Final Sputum - Expectorated Sputum Culture - Preliminary Culture in progress. 01/27/25 05:29 Blood Culture - Preliminary Blood - Venous No growth after 24 hours. 01/27/25 05:28 Blood Culture - Preliminary Blood - Venous No growth after 24 hours. Assessment and Plan (1) Pulmonary cavitary lesion: Status: Acute Assessment and Plan: d2, 39yo M with no chronic medical conditions presenting with 2wk of hemoptysis, night sweats, and involuntary weight loss; found to be septic with left lung cavitary pneumonia sepsis due to cavitary pneumonia with hemoptysis - bacterial coverage with IV cefepime + doxycycline 01/27-, follow BCx, send MRSA swab and urinary antigens for Legionella and pneumococcus, trend PCT - fungal workup: Fungitell, histoplasma serology, blastomyces serology, and cryptococcus antigen pending - autoimmune workup: RF negative, REINIER + ANCA pending - most concerning for possible TB; on negative pressure isolation; AFB smear/Cx x3 + MTB PCR + TB-IGRA pending - ID consulted, following VTE ppx: SCDs dispo: TBD In my clinical judgment, the patient requires continued inpatient hospitalization for the following reasons: IV ABX, TB workup Total time managing care of this patient today: 45 minutes. Quality Stroke Does the patient have a stroke diagnosis?: No VTE Prior VTE?: No VTE Risk Level:: Medical - moderate - high VTE Device Contraindication: N/A - Device Ordered VTE Drug Contraindication: Treatment Not Indicated
--- NOTE | 2025-01-28 13:01 | MHC.CM.PN ---
CM MET WITH PT/MOTHER AT BEDSIDE. PT LIVES WITH MOTHER AND IS FUNCTIONALLY INDEPENDENT, EMPLOYED F/T. NO DME/SERVICES. PT DECLINES COMPLETION OF HCP AT THIS TIME. NO PCP, [facility] PROVIDED. DP: HOME, NO SERVICES IS ANTICIPATED. PT'S MOTHER WILL TRANSPORT. CM WILL CONTINUE TO FOLLOW FOR ANY CHANGE TO DC PLAN/NEEDS.
[2025-01-28 14:49] LABS: MTB M. tuberculosis Complex NOT DETECTED (NOT DETECTED)
[2025-01-28 16:43] VITALS: BP 118/73; PULSE 90; RESP 18; TEMP 37.2; O2SAT 97
[2025-01-28 19:49] VITALS: BP 128/75; PULSE 102; RESP 20; TEMP 37; O2SAT 96
[2025-01-29 04:00] VITALS: BP 118/72; PULSE 92; RESP 18; TEMP 37.1; O2SAT 95
[2025-01-29] MEDS: cefEPime HCl/D5W 2 GM/50 ML PIGGYBACK IV ×3 (05:37→21:59)
[2025-01-29 07:32] VITALS: BP 120/73; PULSE 91; RESP 18; TEMP 37.7; O2SAT 96
[2025-01-29] MEDS: oxyCODONE HCl Immed Release 5 MG TABLET PO (07:50)
[2025-01-29 10:36] LABS: MRSA Nasal PCR NEGATIVE (Negative); SA Nasal PCR NEGATIVE (Negative)
--- NOTE | 2025-01-29 13:18 | P.PNIM_ITS ---
Subjective Subjective Date of Service: 01/29/25 Interval History: c/o hemoptysis no dyspnea no fever last night Review of Systems Review of Systems: Yes all other systems are reviewed and are negative Physical Exam 2 Vital Signs: Vital Signs: Last Vital Signs Temp 99.9 F 01/29/25 07:32 Pulse 91 01/29/25 07:32 Resp 18 01/29/25 07:32 BP 120/73 01/29/25 07:32 Pulse Ox 96 01/29/25 07:32 O2 Del Method Room Air 01/29/25 07:32 BMI result Body Mass Index 33.5 Gen: in no acute distress HEENT: sclera anicteric, moist mucus membranes Neck: supple Lungs: clear to auscultation bilaterally Heart: regular rate and rhythm, no murmurs Abd: soft, non-tender, non-distended Ext: no edema Skin: warm/well-perfused Neuro: alert and oriented x3, no focal findings Psych: appropriate affect Objective Data Active Medications Acetaminophen (Acetaminophen 325 Mg Tablet) 650 mg PO Q6H PRN PRN Reason: Pain, Mild 1-3,fever,headache Last Admin: 01/28/25 09:27 Dose: 650 mg Documented By: MELISSA Al Hydroxide/Mg Hydroxide (Magnesium Hydrox/Alum Hydrox 30 Ml Oral.Susp) 30 ml PO Q4H PRN PRN Reason: Heartburn Benzonatate (Benzonatate 100 Mg Capsule) 200 mg PO TID PRN PRN Reason: Cough Last Admin: 01/28/25 21:38 Dose: 200 mg Documented By: LYSAnnetta Calcium Carbonate (Calcium Carbonate 750 Mg Tab.Chew) 750 mg PO Q4H PRN PRN Reason: Heartburn Guaifenesin/Dextromethorphan (Guaifenesin Dm 100/10/5 Ml 5 Ml Syrup) 10 ml PO Q6H [facility] Last Admin: 01/29/25 07:49 Dose: Not Given Documented By: LAUREN Non-Admin Reason: Patient Refused Doxycycline Hyclate 100 mg/ (Sodium Chloride) 250 mls @ 166.67 mls/hr IV Q12H [facility] Last Infusion: 01/29/25 07:50 Dose: Infused Documented By: LAUREN Cefepime HCl (Maxipime) 2 gm in 50 mls @ 100 mls/hr IV Q8H [facility] Last Infusion: 01/29/25 06:17 Dose: Infused Documented By: JL Magnesium Hydroxide (Milk Of Magnesia 30 Ml Oral.Susp) 30 ml PO DAILY PRN PRN Reason: Constipation Melatonin (Melatonin 3 Mg Tablet) 6 mg PO BEDTIME PRN PRN Reason: Insomnia Ondansetron HCl (Ondansetron Hcl 4 Mg/2 Ml Vial) 4 mg IVPUSH Q8H PRN PRN Reason: Nausea and Vomiting Oxycodone HCl (Oxycodone Hcl Immed Release 5 Mg Tablet) 5 mg PO Q6H PRN PRN Reason: Pain, Severe (Pain Scale 7-10) Last Admin: 01/29/25 07:50 Dose: 5 mg Documented By: LAUREN Polyethylene Glycol (Polyethylene Glycol 3350 17 Gm Powd.Pack) 17 gm PO DAILY PRN PRN Reason: Constipation Sodium Chloride (0.9 % Sodium Chloride Flush 3 Ml Syringe) 3 ml IVFLUSH QSHIFT [facility] Last Admin: 01/29/25 07:50 Dose: Not Given Documented By: LAUREN Non-Admin Reason: IV Running Labs 01/27/25 04:32 01/27/25 04:32 Labs: Laboratory Results - last 24 hr 01/27/25 01/28/25 01/28/25 14:00 05:41 17:00 Nasal Screen MRSA (PCR) NEGATIVE Nasal S. aureus Screen NEGATIVE Nasal MRSA/S.aureus Interp SEE NOTE M.tuberculosis DNA (PCR) NOT DETECTED MTB Rifampin Resis PCR NOT TESTED Cryptococcal Ag SEE NOTE Microbiology Microbiology Results: Microbiology 01/27/25 14:00 Gram Stain - Final Sputum - Expectorated Sputum Culture - Final 01/28/25 09:30 Gram Stain - Final Sputum - Expectorated Sputum Culture - Preliminary Staphylococcus aureus 01/27/25 05:29 Blood Culture - Preliminary Blood - Venous No growth after 48 hours. 01/27/25 05:28 Blood Culture - Preliminary Blood - Venous No growth after 48 hours. Assessment and Plan (1) Pulmonary cavitary lesion: Status: Acute Assessment and Plan: d3, 39yo M with no chronic medical conditions presenting with 2wk of hemoptysis, night sweats, and involuntary weight loss; found to be septic with left lung cavitary pneumonia sepsis due to cavitary pneumonia with hemoptysis - bacterial coverage with IV cefepime + doxycycline 01/27-, follow BCx, MRSA swab negative, sputum growing Staph aureus with susceptibility pending, urinary antigens for Legionella and pneumococcus, pending, trend PCT - fungal workup: serum cryptococcus antigen negative; Fungitell, histoplasma serology, and blastomyces serology pending - autoimmune workup: RF negative, REINIER + ANCA pending - for possible TB remains on negative pressure isolation; AFB smear/Cx x3 pending though MTB PCR negative; Quantiferon-TB pending - HIV negative - ID consulted, following VTE ppx: SCDs dispo: home vs TB isolation In my clinical judgment, the patient requires continued inpatient hospitalization for the following reasons: IV ABX, TB workup Total time managing care of this patient today: 40 minutes. Quality Stroke Does the patient have a stroke diagnosis?: No VTE Prior VTE?: No VTE Risk Level:: Medical - moderate - high VTE Device Contraindication: N/A - Device Ordered VTE Drug Contraindication: Treatment Not Indicated
--- NOTE | 2025-01-29 14:38 | P.PNID_ITS ---
Subjective Subjective Date of Service: 01/29/25 Critical Care Time (minutes): 15 Comment: he has negative HIV test he feels better, slightly tired Smear negative TB staph aureus sputum Objective Data Labs 01/27/25 04:32 01/27/25 04:32 Labs: Laboratory Results - last 24 hr 01/27/25 01/28/25 01/28/25 14:00 05:41 17:00 Nasal Screen MRSA (PCR) NEGATIVE Nasal S. aureus Screen NEGATIVE Nasal MRSA/S.aureus Interp SEE NOTE M.tuberculosis DNA (PCR) NOT DETECTED MTB Rifampin Resis PCR NOT TESTED Cryptococcal Ag SEE NOTE Microbiology Microbiology Results: Microbiology 01/27/25 14:00 Sputum - Expectorated Gram Stain - Final 01/27/25 14:00 Sputum - Expectorated Sputum Culture - Final 01/28/25 09:30 Sputum - Expectorated Gram Stain - Final 01/28/25 09:30 Sputum - Expectorated Sputum Culture - Preliminary Staphylococcus aureus 01/27/25 05:29 Blood - Venous Blood Culture - Preliminary No growth after 48 hours. 01/27/25 05:28 Blood - Venous Blood Culture - Preliminary No growth after 48 hours. Physical Exam 2 Vital Signs: Vital Signs: Last Vital Signs Temp 99.9 F 01/29/25 07:32 Pulse 91 01/29/25 07:32 Resp 18 01/29/25 07:32 BP 120/73 01/29/25 07:32 Pulse Ox 96 01/29/25 07:32 O2 Del Method Room Air 01/29/25 07:32 BMI result Body Mass Index 33.5 Const: General: cooperative HEENT: Head: Yes normal to inspection Face and sinus: Yes normal facial exam Mouth: Normal oral and palatal mucosa present Teeth and gingiva: d entition normal Eyes: General: appearance normal, both eyes and all related structures P upils: Equal, round and reactive pupils present Resp: Effort & Inspection: normal respiratory effort Cardio: Rate: regular rate Rhythm: regular rhythm GI: Palpation (GI): Soft to palpation and nontender : General: Yes no CVA tenderness Back/Spine/Pelvis: Back: no CVA tenderness Skin: General skin exam: no rashes or lesions noted Neuro: General: moves all extremities Cranial nerves: Yes Equal, round and reactive pupils present Extrem: General: Yes normal to inspection Psych: Appearance: grossly normal Assessment and Plan Assessment and plan (1) Pulmonary cavitary lesion: Problem details: He has probable staph aureus pneumonia. No signs of TB at this time and HIV negative. Status: Acute Assessment and Plan: Po cefdroxil for four weeks. Stop isolation if T spot negative. (2) Cough with hemoptysis: Status: Acute Time Spent With Patient Time: Total time managing care of this patient today ____ minutes.
--- NOTE | 2025-01-29 15:08 | MHC.CM.PN ---
PER MD ROUNDS, PT WILL LIKELY BE READY TO DC TOMORROW PENDING TEST RESULTS DCP: HOME VIA PRIVATE TRANSPORT
[2025-01-29 15:31] VITALS: BP 121/75; PULSE 86; RESP 18; TEMP 36.8; O2SAT 95
[2025-01-29] MEDS: 0.9 % Sodium Chloride Flush 3 ML SYRINGE IVFLUSH ×2 (17:52→21:59)
[2025-01-29 20:00] VITALS: BP 116/67; PULSE 96; RESP 18; TEMP 37.4; O2SAT 97
[2025-01-30 04:00] VITALS: BP 118/71; PULSE 82; RESP 20; TEMP 37.6; O2SAT 96
[2025-01-30] MEDS: cefEPime HCl/D5W 2 GM/50 ML PIGGYBACK IV ×3 (05:10→22:14)
[2025-01-30 05:53] LABS: Quantiferon TB Gold Plus 1 NEGATIVE (NEGATIVE); TB Test (QFT) Mitogen -Nil 8.99 IU/mL; TB Test (QFT) Nil 0.05 IU/mL; TB Test (QFT) Plus TB1 -Nil 0.00 IU/mL; TB Test (QFT) Plus TB2 -Nil <0.00 IU/mL
[2025-01-30 07:40] VITALS: BP 110/63; PULSE 80; RESP 18; TEMP 36.8; O2SAT 95
[2025-01-30 15:05] VITALS: BP 118/67; PULSE 91; RESP 18; TEMP 36.6; O2SAT 95
--- NOTE | 2025-01-30 17:21 | P.PNIM_ITS ---
Subjective Subjective Date of Service: 01/30/25 Interval History: No acute issues overnight. Remains on isolation Review of Systems Denies chest pain Denies shortness of breath Denies nausea vomiting diarrhea Denies fever chills Physical Exam 2 Vital Signs: Vital Signs: Last Vital Signs Temp 97.9 F 01/30/25 15:05 Pulse 91 01/30/25 15:05 Resp 18 01/30/25 15:05 BP 118/67 01/30/25 15:05 Pulse Ox 95 01/30/25 15:05 O2 Del Method Room Air 01/30/25 15:05 BMI result Body Mass Index 33.5 Const: Other: Awake alert oriented x3 in no acute distress Resp: Other: Clear to auscultation bilaterally no rales rhonchi or wheezes Cardio: Other: No S4; positive S1-S2; no S3 murmurs rubs or gallops GI: Other: Soft nontender nondistended normoactive bowel sounds Extrem: Other: No edema bilaterally Objective Data Active Medications Acetaminophen (Acetaminophen 325 Mg Tablet) 650 mg PO Q6H PRN PRN Reason: Pain, Mild 1-3,fever,headache Last Admin: 01/28/25 09:27 Dose: 650 mg Documented By: MELISSA Al Hydroxide/Mg Hydroxide (Magnesium Hydrox/Alum Hydrox 30 Ml Oral.Susp) 30 ml PO Q4H PRN PRN Reason: Heartburn Benzonatate (Benzonatate 100 Mg Capsule) 200 mg PO TID PRN PRN Reason: Cough Last Admin: 01/30/25 06:02 Dose: 200 mg Documented By: LYSAnnetta Calcium Carbonate (Calcium Carbonate 750 Mg Tab.Chew) 750 mg PO Q4H PRN PRN Reason: Heartburn Guaifenesin/Dextromethorphan (Guaifenesin Dm 100/10/5 Ml 5 Ml Syrup) 10 ml PO Q6H [facility] Last Admin: 01/30/25 15:51 Dose: Not Given Documented By: INDIA Non-Admin Reason: Patient Refused Doxycycline Hyclate 100 mg/ (Sodium Chloride) 250 mls @ 166.67 mls/hr IV Q12H [facility] Last Infusion: 01/30/25 07:30 Dose: Infused Documented By: INDIA Cefepime HCl (Maxipime) 2 gm in 50 mls @ 100 mls/hr IV Q8H [facility] Last Infusion: 01/30/25 14:11 Dose: Infused Documented By: INDIA Magnesium Hydroxide (Milk Of Magnesia 30 Ml Oral.Susp) 30 ml PO DAILY PRN PRN Reason: Constipation Melatonin (Melatonin 3 Mg Tablet) 6 mg PO BEDTIME PRN PRN Reason: Insomnia Ondansetron HCl (Ondansetron Hcl 4 Mg/2 Ml Vial) 4 mg IVPUSH Q8H PRN PRN Reason: Nausea and Vomiting Oxycodone HCl (Oxycodone Hcl Immed Release 5 Mg Tablet) 5 mg PO Q6H PRN PRN Reason: Pain, Severe (Pain Scale 7-10) Last Admin: 01/29/25 07:50 Dose: 5 mg Documented By: LAUREN Polyethylene Glycol (Polyethylene Glycol 3350 17 Gm Powd.Pack) 17 gm PO DAILY PRN PRN Reason: Constipation Sodium Chloride (0.9 % Sodium Chloride Flush 3 Ml Syringe) 3 ml IVFLUSH QSHIFT [facility] Last Admin: 01/30/25 07:01 Dose: Not Given Documented By: INDIA Non-Admin Reason: IV Running Labs 01/27/25 04:32 01/27/25 04:32 Labs: Laboratory Results - last 24 hr 01/27/25 05:28 TB Test (QFT) Gold Plus NEGATIVE TB Test (QFT) Nil 0.05 TB Test Mitogen - Nil 8.99 TB Test (QFT) +TB1 -NIL 0.00 TB Test (QFT) +TB2 -NIL <0.00 Microbiology Microbiology Results: Microbiology 01/28/25 09:30 Gram Stain - Final Sputum - Expectorated Sputum Culture - Final Staphylococcus aureus Assessment and Plan (1) Pulmonary cavitary lesion: Status: Acute Assessment and Plan: 39yo M with no chronic medical conditions presenting with 2wk of hemoptysis, night sweats, and involuntary weight loss; found to be septic with left lung cavitary pneumonia 1.Cavitary pneumonia with hemoptysis -cefepime/doxycycline(4) -MRSA swab negative.. sputum MSSA - fungal workup: serum cryptococcus antigen negative; Fungitell, histoplasma serology, and blastomyces serology pending - autoimmune workup: RF negative, REINIER + ANCA pending - for possible TB remains on negative pressure isolation; AFB smear/Cx x3 pending though MTB PCR negative; Quantiferon-TB pending - HIV negative - ID consulted, following VTE ppx: SCDs dispo: home vs TB isolation In my clinical judgment, the patient requires continued inpatient hospitalization for the following reasons: IV ABX, TB workup Quality Stroke Does the patient have a stroke diagnosis?: No VTE Prior VTE?: No VTE Risk Level:: Medical - moderate - high VTE Device Contraindication: N/A - Device Ordered VTE Drug Contraindication: Treatment Not Indicated
[2025-01-30] MEDS: 0.9 % Sodium Chloride Flush 3 ML SYRINGE IVFLUSH ×2 (17:38→22:14)
[2025-01-30 19:14] VITALS: BP 114/68; PULSE 82; RESP 16; TEMP 37; O2SAT 96
[2025-01-31 03:14] VITALS: BP 119/76; PULSE 77; RESP 14; TEMP 37.2; O2SAT 95
[2025-01-31] MEDS: cefEPime HCl/D5W 2 GM/50 ML PIGGYBACK IV (05:12)
[2025-01-31] MEDS: 0.9 % Sodium Chloride Flush 3 ML SYRINGE IVFLUSH (07:32)
[2025-01-31 07:34] VITALS: BP 114/71; PULSE 78; RESP 18; TEMP 37.1; O2SAT 96
--- NOTE | 2025-01-31 12:18 | P.DS_ITS ---
DS: Providers Provider Date of admission: 01/27/25 09:41 Date of discharge: 01/31/25 Primary care physician: Unknown Physician Consults: 01/27/25 10:05 Consult to Infectious Diseases Routine Consulting Provider: [facility] Reason for consultation: left lung cavitory lesion 01/27/25 10:06 Consult to Pulmonology Routine Consulting Provider: [facility] Pulmonology Services Reason for consultation: left lung cavitary lesion/ Has provider been notified: No DS: Diagnosis Discharge Diagnosis (1) Pulmonary cavitary lesion: Status: Acute DS: Summary Hospital Course Hospital Course: 39-year-old gentleman with no significant past medical history presented to [place] ED due to symptoms of left sided chest pain of 1 week duration. Pain is localized with no radiation get worse with coughing and deep breathing associated with shortness of breath, cough productive of blood tinged sputum, night sweats, occasional epistaxis, decreased appetite, subjective fevers and 5 lb weight loss in 1 week. Patient denies similar symptoms in the past, denied recent travels, no household members with similar symptoms. Took ibuprofen and Tylenol with no relief in symptoms. He was incarcerated many years ago, last left country couple years ago. Patient denies history of smoking, no illicit drug use, no alcohol use, no nausea no vomiting or aspiration. In ED patient noted to have temp of 101.6 degrees, WBC 18.8, pulse 102, respiratory rate 21, O2 sat 96% on room air. CTA chest showed no acute PE, concerning fungal infection versus mild go bacteria with a dominant irregular shape cavitary lesion left upper lung lobe, lung abscess can not be excluded. Patient treated in the emergency room with IV doxycycline, IV cefepime, IV fluid, QuantiFERON TB gold test sent patient is now being admitted to [facility] for sepsis due to left lung cavitary lesion. Hospital Course Patient admitted to general medical floor and placed in pulmonary isolation. Was seen in consultation by Infectious Disease who agreed with cefepime and doxycycline. Workup for TB negative; discussed with ID. MSSA pneumonia. Patient will be discharged on 4 weeks of cefadroxil. He will find PCP and fol low up thereafter Time Attestation Discharge Coordination Time (in mins): 35 Quality: Safe Use of Opioids Does Pt have an Active Cancer Diagnosis on the Problem List?: No Quality: Stroke Does the patient have a stroke diagnosis?: No Physical Exam Vital Signs: Vital Signs: Last Vital Signs Temp 98.7 F 01/31/25 07:34 Pulse 78 01/31/25 07:34 Resp 18 01/31/25 07:34 BP 114/71 01/31/25 07:34 Pulse Ox 96 01/31/25 07:34 O2 Del Method Room Air 01/31/25 07:34 BMI result Body Mass Index 33.5 Const: Other: Awake alert oriented x3 in no acute distress Resp: Other: Clear to auscultation bilaterally no rales rhonchi or wheezes Cardio: Other: No S4; positive S1-S2; no S3 murmurs rubs or gallops GI: Other: Soft nontender nondistended normoactive bowel sounds Extrem: Other: No edema bilaterally DS: Data Data Completed and Pending Labs on day of discharge: Preliminary micro results at discharge 01/27/25 05:29 Blood Culture - Preliminary Blood - Venous No growth after 48 hours. 01/27/25 05:28 Blood Culture - Preliminary Blood - Venous No growth after 48 hours. Discharge Plan Discharge Anticipated Discharge Date/Time: 01/31/25 12:08 Patient Disposition: Home, Self-Care Discharge Diagnosis: MSSA pneumonia Referrals: Physician,Unknown J [Primary Care Provider, Medical] - 1 Week Discharge Medications: New cefadroxil 500 mg capsule 500 mg PO BID Qty: 60 0RF Continued acetaminophen [Tylenol] 325 mg Tablet 650 mg PO Q4H PRN (Reason: Pain) ibuprofen 200 mg Tablet 400 mg PO Q6H PRN (Reason: Pain) Discharge Orders: Discharge Order (Routine); Ordered 01/31/25 Ordered By: Luisito Kraus Diet: Advance to usual diet Activity on Discharge: As tolerated Stand Alone Forms: Patient Portal Discharge page Print Language: Russian Care Plan Goals: Complete cefadroxil as ordered; 4 week course Health Concerns: You need to make an appointment with a new PCP and follow up 1st available appointment Plan of Treatment: Continue all previous medications Assessment: See discharge summary
--- NOTE | 2025-01-31 12:31 | MHC.CM.PN ---
PT CLEARED TO DC HOME WITH NO SERVICES PT TO ARRANGE TRANSPORT
[2025-02-01 00:13] LABS: Fungitell 1,3 beta glucan Negative
[2025-02-01 18:44] LABS: Histoplasma capsulatum H Ab Negative (Negative); Histoplasma capsulatum M Ab Negative (Negative)
[2025-02-05 09:45] LABS: Blastomyces Ab ID Negative
[2025-02-05 09:54] LABS: Anti Nuclear Antibody Screen NEGATIVE (NEGATIVE)
== END 2025-01-31 13:32 | disposition home or self-care (01) | DRG 720 ==
LOC: HO.ED 08:01 → HO.EDOVER 10:02 → HO.S3 11:25
PROVIDERS: Family Medicine; Internal Medicine; Internal Medicine Pulmonary Disease; Admitting Provider Hospitalist; Emergency Provider Emergency Medicine; Visit Provider Hospitalist
DX: A41.9 Sepsis, unspecified organism (principal); J15.211 Pneumonia due to Methicillin susceptible Staphylococcus aureus; R04.2 Hemoptysis; J98.4 Other disorders of lung
CPT/HCPCS: 36415; 71046; 71275; 80048; 80076; 83605; 84484; 85025; 85652; 86038; 86403; 86431; 86480; 86612; 86698; 87040; 87070; 87077; 87116; 87186; 87205; 87206; 87389; 87449; 87564; 87637; 87640; 87641; 87899; 93005; 99285; J0131; J0692; J1271; J1885; J2405; J7120; Q9967

== ENCOUNTER → 2025-01-27 03:18 | Outpatient (BNV) | payer MEDICAID, SELFPAY | PROVIDERS: Admitting Provider Hospitalist; Emergency Provider Emergency Medicine; Visit Provider Internal Medicine Cardiovascular Disease | DX: R94.31 Abnormal electrocardiogram [ECG] [EKG] (principal); R07.9 Chest pain, unspecified | CPT/HCPCS: 93010 ==

== ENCOUNTER → 2025-01-27 04:06 | Outpatient (BNV) | payer MEDICAID, SELFPAY | PROVIDERS: Emergency Provider Emergency Medicine; Visit Provider Student in an Organized Health Care Education/Training Program | DX: R04.2 Hemoptysis (principal); R91.8 Other nonspecific abnormal finding of lung field | CPT/HCPCS: 71046; 71275 ==

== ENCOUNTER → 2025-01-27 09:41 | Outpatient (BNV) | payer MEDICAID, SELFPAY | PROVIDERS: Admitting Provider Hospitalist; Emergency Provider Emergency Medicine; Visit Provider Internal Medicine | DX: J98.4 Other disorders of lung (principal); R04.2 Hemoptysis | CPT/HCPCS: 99222 ==

== ENCOUNTER → 2025-01-27 09:41 | Outpatient (BNV) | payer MEDICAID, SELFPAY | PROVIDERS: Admitting Provider Hospitalist; Emergency Provider Emergency Medicine; Visit Provider Internal Medicine Pulmonary Disease | DX: J98.4 Other disorders of lung (principal); R04.2 Hemoptysis | CPT/HCPCS: 99222 ==

== ENCOUNTER → 2025-01-27 09:41 | Outpatient (BNV) | payer MEDICAID, SELFPAY | PROVIDERS: Admitting Provider Hospitalist; Emergency Provider Emergency Medicine; Visit Provider Hospitalist | DX: J98.4 Other disorders of lung (principal) | CPT/HCPCS: 99223; 99232 ==